=== PATIENT | male | born 1955 | race Caucasian/White ===

== ENCOUNTER 2021-05-24 10:18 | Emergency (ER) | payer OTHER ==
[~2021-05-24] VITALS: Ht 167.6 cm; Wt 90.9 kg
--- NOTE | 2021-05-24 10:31 | NUR ---
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
--- NOTE | 2021-05-24 11:06 | NUR ---
dust box tender note: Pt to room from [facility].
--- NOTE | 2021-05-24 11:37 | NUR ---
PT BIB EMS FOR NV X 3 DAYS, NECK AND NIPPLE PAIN, AND BODY ACHES. PIV BY EMS SHEEP SHEARER. PT ALSO GIVEN 250 ML NS VIA IV SHEEP SHEARER. PT DENIES ACTIVE NAUSEA AT THIS TIME. PT CONNECTED TO MONITORING EQUIPMENT. RAILS UP. BELONGINGS AND CALL LIGHT WITHIN REACH.
[2021-05-24] MEDS ORDERED: ONDANSETRON 2MG/ML, 2ML IVPush ONE (12:00)
[2021-05-24] MEDS ORDERED: SODIUM CHLORIDE 0.9% 1,000ML IVBOLUS ONE (12:00)
[2021-05-24 12:33] LABS: BASOPHILS % (AUTO) 1 % (0-1); EOSINOPHILS % (AUTO) 0 % (1-7); LYMPHOCYTES % (AUTO) 19 % (22-44); MEAN CORPUSCULAR HEMOGLOBIN 32.6 pg (27.5-34.5); MEAN PLATELET VOLUME 7.6 fL (7.4-10.4); MONOCYTES % (AUTO) 6 % (2-9); NEUTROPHILS % (AUTO) 74 % (42-75); PLATELET COUNT 242 x10^3/uL (130-400); RED BLOOD COUNT 4.01 x10^6/uL (4.38-5.82); RED CELL DISTRIBUTION WIDTH 13.5 % (9.4-14.8)
[2021-05-24] MEDS ORDERED: ONDANSETRON 2MG/ML, 2ML ONE (12:33)
[2021-05-24 12:49] LABS: ALANINE AMINOTRANSFERASE 47 U/L (12-78); ALBUMIN 3.1 g/dL (3.4-5.0); ALKALINE PHOSPHATASE 56 U/L (45-117); ANION GAP 7 mmol/L (5-15); BILIRUBIN,TOTAL 0.8 mg/dL (0.2-1.0); CALCIUM 8.2 mg/dL (8.5-10.1); CHLORIDE 107 mmol/L (98-107); TOTAL PROTEIN 6.7 g/dL (6.4-8.2)
[2021-05-24] MEDS ORDERED: KETOROLAC 30 MG/1 ML IVPush ONE (13:30)
[2021-05-24] MEDS ORDERED: KETOROLAC 30 MG/1 ML ONE (13:42)
[2021-05-24 15:07] VITALS: BP 114/64
--- NOTE | 2021-05-24 15:22 | NUR ---
PT INSISTING ON WAITING IN ROOM FOR RIDE. REQUESTING FOOD.
--- NOTE | 2021-05-24 15:53 | NUR ---
Patient given discharge instructions and they have confirmed that they understand the instructions. Patient ambulatory with steady gait.
== END 2021-05-24 21:20 | disposition home or self-care (01) ==
LOC: ED 20:39
DX: K52.9 Noninfective gastroenteritis and colitis, unspecified (principal); Z20.822 Contact with and (suspected) exposure to COVID-19; B34.9 Viral infection, unspecified
CPT/HCPCS: 36415; 80053; 83690; 85025; 96361; 96374; 96375; 99284; J1885; J2405; J7030; U0003; U0005